=== PATIENT | male | born 1955 | race African-American/Black ===

== ENCOUNTER 2017-12-02 16:10 | Emergency (ER) | payer OTHER ==
--- NOTE | 2017-12-02 16:21 | PDOC ---
Rapid Medical Evaluation Time Seen by Provider: 12/02/17 16:16 Medical Evaluation: 12/02/17 16:16 I have performed a brief in-person evaluation of this patient. The patient presents with a chief complaint of: left thumb laceration on fluorescent light bulb Pertinent physical exam findings: 3cm laceration to dorsum of left thumb. Full flewion and extension against resistance. Bleeding at present. Td- UTD. I have ordered the following: nothing The patient will proceed to the ED for further evaluation. Discharge Disposition - Diagnosis Laceration - Referrals - Patient Instructions - Post Discharge Activity
[2017-12-02 16:23] VITALS: BP 152/92; PULSE 68; TEMP 98.1; BMI 32.5
--- NOTE | 2017-12-02 17:27 | PDOC ---
History of Present Illness - General Chief Complaint: Injury Stated Complaint: LT.HAND CUT INJURY Time Seen by Provider: 12/02/17 16:16 - History of Present Illness Initial Comments: 12/02/17 17:21 62-year-old male current on tetanus with a past medical history significant for hypertension presents for evaluation of a left thumb laceration sustained at work while changing the [employer]cent lightbulb. Past History - Past Medical History Allergies/Adverse Reactions: Allergies Allergy/AdvReac Type Severity Reaction Status Date / Time No Known Allergies Allergy Verified 12/02/17 16:23 Home Medications: Ambulatory Orders NK [No Known Home Medication] 12/02/17 Cancer: No COPD: No CHF: No HTN: Yes - Surgical History Appendectomy: No GI Surgery: No Neurologic Surgery: No - Immunization History Immunization Up to Date: No - Suicide/Smoking/Psychosocial Hx Smoking History: Never smoked Have you smoked in the past 12 months: No Information on smoking cessation initiated: No Hx Alcohol Use: No Drug/Substance Use Hx: No Substance Use Type: None Review of Systems - Review of Systems Musculoskeletal: Yes: See HPI All Other Systems: Reviewed and Negative *Physical Exam - Vital Signs Last Vital Signs Temp Pulse Resp BP Pulse Ox 98.1 F 68 16 152/92 97 12/02/17 16:18 12/02/17 16:18 12/02/17 16:18 12/02/17 16:18 12/02/17 16:18 - Physical Exam Comments: 12/02/17 17:23 Left thumb skin color and temperature are normal there is a 1 cm laceration on the dorsum of the thumb just proximal to the IPJ in no Bleakley oriented fashion. Extensor and flexor tendon function of well-maintained. There are no gross sensorimotor deficits. He is neurovascular intact less than 2 seconds of capillary refill. ED Treatment Course - RADIOLOGY Radiology Studies Ordered: Category Date Time Status FINGER(S) LEFT [RAD] Stat Radiology 12/02/17 16:48 Taken Medical Decision Making - Medical Decision Making 12/02/17 17:24 Under aseptic technique 6 mL of 1% lidocaine was used for digital block. The wound was explored to its bloodless field without identification of foreign body. 4 interrupted 4-0 nylon sutures were used a dry sterile dressing was placed this was tolerated well. X-rays reviewed there was no identification of foreign body *DC/Admit/Observation/Transfer Diagnosis at time of Disposition: Laceration - Discharge Dispostion Disposition: HOME Condition at time of disposition: Stable Decision to Admit order: No - Referrals Referrals: Felix Huitron MD [Staff Physician] - - Patient Instructions Printed Discharge Instructions: Laceration Repair, DI for Laceration Repair Additional Instructions: Keep the dressing on for the next 48 hours. After 48 hours may remove the dressing leaving the areas open to air. Keep hand clean with soap and water. Return to the emergency room or hand surgery in 10 days for suture removal sooner if problems develop. Please follow-up with hand surgery in 2-3 days for further evaluation and treatment options. If she have to work please keep the area covered with dry glove. Return to the emergency room sooner she develop any redness swelling or drainage or increasing pain from the area - Post Discharge Activity
== END 2017-12-02 17:29 | disposition home or self-care (01) ==
LOC: JERFT 16:10
PROC: 0HQGXZZ Repair Left Hand Skin, External Approach (ICD-10-PCS; principal; 2017-12-02)
DX: S61.012A Laceration without foreign body of left thumb without damage to nail, initial encounter (principal); W45.8XXA Other foreign body or object entering through skin, initial encounter; Y93.89 Activity, other specified; Y92.89 Other specified places as the place of occurrence of the external cause; I10 Essential (primary) hypertension
CPT/HCPCS: 73140-TC-LT-FY; 99282-25